=== PATIENT | male | born 1970 | race Hispanic/Latino ===

== ENCOUNTER 2018-09-06 10:07 | Outpatient (CLI) | payer OTHER ==
[2018-09-06] MEDS ORDERED: Iopamidol 370 76% 100 ML VIAL ONE (11:45)
--- NOTE | 2018-09-06 12:19 | CT ---
CT ABDOMEN AND PELVIS WITH IV CONTRAST: 09/06/2018 PROVIDED CLINICAL HISTORY: Suprapubic discomfort and blood in stool. FINDINGS: The visualized lung bases are free of significant opacity. The liver, spleen, pancreas, kidneys, and adrenal glands demonstrate an unremarkable CT appearance. There is no bowel dilatation, inflammatory fat stranding, free fluid, or lymph node enlargement appar ent. The appendix appears normal. The urinary bladder appears unremarkable for the degree of distention is present. The regional vascu lar structures appear unremarkable. The osseous structures demonstrate no concerning lytic or blastic lesions. IMPRESSION: Unremarkable CT of the abdomen and pelvis. POS: [facility]
== END 2018-09-06 10:08 | disposition home or self-care (01) ==
LOC: CT 10:07
PROVIDERS: ATTEND Family Medicine
DX: R10.2 Pelvic and perineal pain (principal); K92.1 Melena; R19.8 Other specified symptoms and signs involving the digestive system and abdomen; R63.4 Abnormal weight loss
CPT/HCPCS: 74177; Q9967